=== PATIENT | female | born 1955 | race Caucasian/White ===

== ENCOUNTER → 2020-06-19 | Outpatient (CLI) | payer MEDICARE, OTHER ==
[~2020-06-19] MED LIST: K-DUR TAB 10 M10 MEQ PO
== END ==
LOC: CT 07:38
DX: R91.1 Solitary pulmonary nodule (principal); R10.9 Unspecified abdominal pain; N85.9 Noninflammatory disorder of uterus, unspecified
CPT/HCPCS: 71250; Q9967

== ENCOUNTER → 2020-07-17 | Outpatient (CLI) | payer MEDICARE, OTHER | LOC: MRI 08:51 | DX: N94.89 Other specified conditions associated with female genital organs and menstrual cycle (principal); S76.312A Strain of muscle, fascia and tendon of the posterior muscle group at thigh level, left thigh, initial encounter | CPT/HCPCS: 72197; A9577 ==

== ENCOUNTER → 2021-06-13 | Outpatient (CLI) | payer MEDICARE, OTHER | LOC: HEART 5 07:51 | DX: I20.9 Angina pectoris, unspecified (principal); I08.1 Rheumatic disorders of both mitral and tricuspid valves | CPT/HCPCS: 78452; 93306; A9502 ==

== ENCOUNTER → 2022-01-17 | Outpatient (CLI) | payer MEDICARE, OTHER | LOC: US 07:49 → NM 08:30 | DX: N28.1 Cyst of kidney, acquired (principal); R10.9 Unspecified abdominal pain | CPT/HCPCS: 78264; A9541 ==